=== PATIENT | female | born 1995 | race Hispanic/Latino ===

== ENCOUNTER → 2023-10-31 15:30 | Outpatient (CLI) | payer OTHER, SELFPAY ==
--- NOTE | 2023-10-31 15:32 | DI.US.S_ITS ---
PROCEDURE: US OB >= 14 WEEKS FETUS INDICATIONS: anatomy OUTSIDE/PRIOR DATING DATA: Last menstrual period (LMP): 06/12/2023. LMP-based estimated date of delivery (MAINOR): 03/18/2024. First dating scan (date and location): 10/31/2023. Estimated date of delivery (MAINOR) from first dating scan: 03/28/2024. TECHNIQUE: Real-time scanning was performed of the fetus, with image documentation and biometric measurements. COMPARISON: [facility], US, US PELVIC COMPLETE WITH TRANSVAGINAL, 04/05/2022, 13:26. FINDINGS: General: A single living intrauterine gestation is present. Presentation: Variable Placenta: Placental position is posterior , without previa. Amniotic fluid index: 14.0 cm, normal range is 5-24 cm. Single deepest vertical pocket is 5.7 cm. heart rate: 150 beats per minute. Maternal cervical canal: 4.8 cm long. Normal lower limit is 2.5 cm. biometrics: Biparietal diameter: 4.2 cm 18 weeks 5 days Head circumference: 15.3 cm 18 weeks 2 days Abdominal circumference: 13.4 cm 18 weeks 6 days Femur length: 2.9 cm 19 weeks 0 days Clinically estimated gestational age: 20 weeks 1 day Composite gestational age from present scan: 18 weeks 5 days Estimated weight and percentile: 261 g, 3rd percentile Anatomic survey: Neuro: Ventricles are non-dilated at less than 10 mm. Cisterna magna is normal at 3-11 mm. Cerebellum is normal in size and morphology. Nuchal skin fold: Normal at less than 6 mm between 14-21 weeks gestational age. Face: Nose and lips, facial profile are normal. Spine: No evidence for spina bifida. Heart: 4-chambered heart is present, with normal ventricular outflow tracts. Diaphragm: Diaphragm is intact. Stomach: Left-sided stomach is present. Kidneys: No hydronephrosis. Normal is less than 5 mm in 2nd trimester, less than 7 mm in 3rd trimester. Cord: 3-vessel cord has orthotopic insertion. Bladder: Normal in size. Extremities: All 4 extremities identified. IMPRESSION: Single live intrauterine with gestational age today of 18 weeks 5 days. Anatomy is within normal limits. weight is noted at the 3rd percentile. While weight is variable early in , continued interval follow-up is recommended to exclude presence of developing intrauterine growth restriction/microsomia. We strive to produce accurate, complete, and clear reports of imaging services. To assist us in improving patient care, this report was composed using standard report templates and voice recognition software. Therefore, it may contain abnormal punctuation, insertions and/or omissions. Occasional wrong-word or sound-alike substitutions may occur. Though we review the report and make efforts to correct it, we do recommend that the report be read carefully in proper context to recognize any text inaccuracies. Dictated by: Milagro Zarate M.D. on 11/01/2023 at 10:55 Approved by: Milagro Zarate M.D. on 11/01/2023 at 10:58
== END ==
PROVIDERS: Referring Provider Obstetrics & Gynecology; Visit Provider Obstetrics & Gynecology
DX: Z34.82 Encounter for supervision of other normal pregnancy, second trimester (principal); Z3A.18 18 weeks gestation of pregnancy
CPT/HCPCS: 76811; 87086

== ENCOUNTER → 2023-11-06 11:26 | Outpatient (CLI) | payer OTHER, SELFPAY ==
[2023-11-06 12:22] LABS: Add Manual Diff / Slide Review NO; Basophils Absolute Auto 0 /uL (0-100); Basophils Percent Auto 0.3 % (0-2); Eosinophils Absolute Auto 100 /uL (0-450); Eosinophils Percent Auto 1.3 % (2-4); Hematocrit 36.4 % (36-46); Hemoglobin 12.6 g/dL (12.0-16.0); Lymphocytes Absolute Auto 1400 /uL (1100-4500); Lymphocytes Percent Auto 18.4 % (25-40); Mean Corpuscular HGB Conc 34.5 % (30-36); Mean Corpuscular Hemoglobin 29.7 PG (26-34); Monocytes Absolute Auto 300 /uL (0-900); Monocytes Percent Auto 4.5 % (3-14); Neutrophils Absolute Auto 5600 /uL (1500-7000); Neutrophils Percent Auto 75.5 % (50-75); Platelet Count 249 X10^3/uL (150-400); Red Blood Cell Count 4.24 X10^6/uL (4.0-5.2); Red Cell Distribution Width 13.2 % (11.6-14.8); White Blood Cell Count 7.4 X10^3/uL (4.5-11.0)
[2023-11-06 17:13] LABS: Hepatitis B Surface Antigen NEGATIVE s/c (NEGATIVE); Rubella Antibody IgG 50.7 IU/mL (>15)
[2023-11-06 17:31] LABS: HIV 1 & 2 Ab/Ag 4th Gen Combo NEGATIVE (NEGATIVE); Hep C Virus Ab w/Reflex Quant NEGATIVE s/c (NEGATIVE)
[2023-11-07 06:52] LABS: RPR Screen Non Reactive (Non Reactive)
[2023-11-07 10:50] LABS: Varicella IgG Antibody 1868 index (Immune >165)
[2023-11-08 22:20] LABS: Calc Gestational Age Ultrasound (.); Estriol, Free 1.71 ng/mL (.); Inhibin A, Dimeric 259.24 pg/mL (.); Maternal Ethnicity Other (.); Maternal Weight 160 lbs (.); Number of Fetuses No (.); OSBR Risk 1 IN 10000 (.); Results Report (.); Test Results *Screen Positive* (.); hCG, MoM 1.24 (.); hCG, Serum 29071 mIU/mL (.)
== END ==
PROVIDERS: Referring Provider Obstetrics & Gynecology; Visit Provider Obstetrics & Gynecology
DX: Z34.80 Encounter for supervision of other normal pregnancy, unspecified trimester (principal)
CPT/HCPCS: 36415; 80055; 82105; 82677; 84702; 86336; 86787; 86803; 86850; 86900; 86901; 87389

== ENCOUNTER → 2023-12-11 10:58 | Outpatient (CLI) | payer OTHER, SELFPAY ==
[2023-12-11 13:35] LABS: Hematocrit 34.4 % (36-46)
[2023-12-11 13:55] LABS: Natera Collection Specimen Collected
[2023-12-11 14:58] LABS: GTT (PREG) 1 Hour PP 50gm Dose 90 mg/dL (76-139)
== END ==
PROVIDERS: Referring Provider Obstetrics & Gynecology; Visit Provider Obstetrics & Gynecology
DX: Z34.82 Encounter for supervision of other normal pregnancy, second trimester (principal); Z3A.26 26 weeks gestation of pregnancy
CPT/HCPCS: 36415; 82950; 85014; 85018

== ENCOUNTER → 2024-01-15 13:46 | Outpatient (CLI) | payer OTHER, SELFPAY ==
--- NOTE | 2024-01-15 13:47 | DI.US.S_ITS ---
PROCEDURE: US OB LIMITED INDICATIONS: interval growth OUTSIDE/PRIOR DATING DATA: Last menstrual period (LMP): 06/12/2023. LMP-based estimated date of delivery (MAINOR): 03/18/2024. First dating scan (date and location): Unknown. Estimated date of delivery (MAINOR) from first dating scan: Known. The calculations are made using the working MAINOR of 03/28/2024. TECHNIQUE: Real-time scanning was performed of the fetus, with image documentation and biometric measurements. Endovaginal scanning: No COMPARISON: None. FINDINGS: General: A single living intrauterine gestation is present. Presentation: Vertex. Placenta: Placental position is posterior , without previa. Placental cord insertion 3.3 cm from the placental edge Amniotic fluid index: 16.2 cm, normal range is 5-24 cm. Single deepest vertical pocket is 6.8 cm. heart rate: 147 beats per minute. Maternal cervical canal: 5.7 cm long. Normal lower limit is 2.5 cm. biometrics: Biparietal diameter: 7.1 cm, 28 week 3 day Head circumference: 27.3 cm, 29 week 6 day Abdominal circumference: 25.7 cm, 29 week 6 day Femur length: 5.6 cm, 29 week 4 day Clinically estimated gestational age: 31 week 0 day Composite gestational age from present scan: 29 week 3 day Estimated weight and percentile: 1433 g, 8 percentile Other: Cord Doppler 3.5, 3.0, 3.3. IMPRESSION: Single live intrauterine consistent with 29 week 3 day gestation by current ultrasound Estimated weight 8 percentile Approved by: Damon Polanco M.D. on 01/16/2024 at 17:56
== END ==
PROVIDERS: Referring Provider Obstetrics & Gynecology; Visit Provider Obstetrics & Gynecology
DX: O26.843 Uterine size-date discrepancy, third trimester (principal); Z3A.29 29 weeks gestation of pregnancy
CPT/HCPCS: 76815

== ENCOUNTER 2024-02-07 14:12 | Outpatient (CLI) | payer OTHER, SELFPAY ==
--- NOTE | 2024-02-07 15:25 | P.TNLD_ITS ---
Visit Information Visit Information Date of evaluation: 02/07/24 Primary OB Provider: Amalia Randolph On-call OB Provider: Amalia Randolph Reason for Evaluation: Yes non-stress test Comments/Additional reasons for admission: newly identified IUGR, MFM recommendations for once weekly NST [facility] Medical History (Updated 01/23/24 @ 09:26 by Amalia Randolph MD) affected by growth restriction Chicken pox Surgical History (Updated 10/23/23 @ 08:54 by Paulina Ramirez, RN) History of tooth extraction Family History (Updated 10/23/23 @ 09:34 by Paulina Ramirez, RN) Father Chang's palsy Mother Long COVID Family/Other Diabetes mellitus Family/Other Diabetes mellitus Family/Other Congenital heart anomaly Grandmother Pancreatic cancer Gastric ulcer Sister Preeclampsia Social History marital status: number of children: 1 household members: spouse and children lives independently: Yes caregiver/support person: Yes housing: house pets and animals: Yes (1 dog) education level: vocational (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, eyelashes, eyebrow tattoos, cosmetics)) current occupational exposures/hazards: Yes nafisa/episcopal: Religion special nafisa needs: No travel history: recent (Domestic only) seatbelt use: always helmet use: No water heater temp set < 120 deg: Yes working smoke detector in home: Yes fire extinguisher in home: No carbon monox detector in home: Yes firearms in home: No do you feel safe at home: Yes Smoking Status: Never smoker second hand exposure: No alcohol intake: former (very occasionally when not ) substance use type: does not use during the past year weight has: remained stable well-balanced diet: about half the time daily servings fruits/ve-4 caffeine: Yes (decaf only) Type(s) of exercise: none (wants to start gentle exercises again) additional social history: Immigrated from [place] age 10, 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 Evaluation Evaluation Baseline heart rate: 135 Variability: Moderate (11-25) monitor accelerations: Present Monitor Decelerations: Absent Category of Tracing: Reactive Status: Category l Diagnosis, Plan/Disposition Plan/Disposition OB Disposition: home
== END 2024-02-07 15:18 | disposition home or self-care (01) ==
LOC: LABOR 14:32 → OB 02-12 06:35
PROVIDERS: Referring Provider Obstetrics & Gynecology; Visit Provider Obstetrics & Gynecology
DX: O36.5930 Maternal care for other known or suspected poor fetal growth, third trimester, not applicable or unspecified (principal); Z3A.34 34 weeks gestation of pregnancy
CPT/HCPCS: 59025; G0378; G0379

== ENCOUNTER → 2024-02-26 08:12 | Outpatient (CLI) | payer OTHER, SELFPAY ==
[2024-02-27 15:51] LABS: Strep Grp B PCR NEG for Grp B Strep
== END ==
PROVIDERS: Referring Provider Student in an Organized Health Care Education/Training Program; Visit Provider Student in an Organized Health Care Education/Training Program
DX: Z34.80 Encounter for supervision of other normal pregnancy, unspecified trimester (principal); Z3A.36 36 weeks gestation of pregnancy
CPT/HCPCS: 87653

== ENCOUNTER 2024-03-26 08:47 | Outpatient (CLI) | payer OTHER, SELFPAY | END 2024-03-26 09:28 | disposition home or self-care (01) | LOC: LABOR 09:17 → OB 03-27 09:58 | PROVIDERS: Referring Provider Obstetrics & Gynecology; Visit Provider Obstetrics & Gynecology | DX: O48.0 Post-term pregnancy (principal); Z3A.40 40 weeks gestation of pregnancy | CPT/HCPCS: 59025; G0378; G0379 ==

== ENCOUNTER 2024-03-28 07:26 | Inpatient (IN) | payer OTHER, SELFPAY ==
[2024-03-28 12:47] VITALS: BP 111/66
--- NOTE | 2024-03-28 13:31 | PM.OBHP.IH.1 ---
OB HPI Date/Time Date of admission: 03/28/24 Date Patient Seen: 03/28/24 Time Patient Seen: 12:00 History of Present Condition Chief complaint: ob MAINOR Calculator Estimated Delivery Date Method Current WG Current Estimate 03/24/24 Ultrasound #1 40w 4d Other Estimates 03/18/24 LMP (Certain) 41w 3d : 3 Para: 1 Narrative: 28 yo at 40w4d here for contractions. No LOF, good movement. Some bloody show. She lives 30 minutes from hospital. Dating criteria OB: based on 1st trimester US only Ultrasounds: normal 1st trimester US and normal mid trimester US Obstetrical complications: none and growth restriction (resolved) Medical complications OB: none Preadmission Labs Last OB Lab Results: Blood Type A Positive 11/06/23 11:35 Antibody Screen Negative 11/06/23 11:35 Hct 34.4 % (36-46) L 12/11/23 11:42 Hgb 12.0 g/dL (12.0-16.0) 12/11/23 11:42 Hep Bs Antigen Negative s/c (NEGATIVE) 11/06/23 11:35 Hepatitis C Antibody Negative s/c (NEGATIVE) 11/06/23 11:35 Rubella Antibody 50.7 IU/mL (>15) 11/06/23 11:35 VZV IgG Antibody 1868 index (Immune >165) 11/06/23 11:35 Glucose 1 Hr 50 gm 90 mg/dL (76-139) 12/11/23 11:42 Group B Strep (PCR) Neg for grp b strep 02/26/24 08:12 Genetic Screens: Quad screen: Abnormal and Cell-free DNA: Normal (XX) Prior (ies) Past Pregnancies Del. Date GA/Weeks Labor Lgth Wt Sex Route Outcome Anesthesia Place Delv Breastfeed Preg Comp Name 03/26/12 39 12 6 lb 13 oz Female vaginal live - full term epidural Winston 1 year none Polina 04/05/22 4-6 spontaneous Delivery Date: 04/05/22 Last Updated by: Paulina Ramirez RN passed spontaneously, no complications Evaluation Evaluation Baseline heart rate: 145 Variability: Average (6-10) monitor accelerations: Present Monitor Decelerations: Absent Contraction Frequency (minutes): 5 Uterine Contraction Intensity: Moderate Category of Tracing: Reactive Status: Category l Dilation (cm): 4 Effacement (%): 90 Dilation: 3-4 cm Effacement: >/=80% station: -1 Position of cervix: posterior Consistency: soft Cheek score: 9 PFSH Medical History (Updated 02/19/24 @ 15:47 by Jessenia Tolbert DO) Chicken pox Surgical History (Updated 10/23/23 @ 08:54 by Paulina Ramirez RN) History of tooth extraction Family History (Updated 10/23/23 @ 09:34 by Paulina Ramirez RN) Father Chang's palsy Mother Long COVID Family/Other Diabetes mellitus Family/Other Diabetes mellitus Family/Other Congenital heart anomaly Grandmother Pancreatic cancer Gastric ulcer Sister Preeclampsia Social History marital status: number of children: 1 household members: spouse and children lives independently: Yes caregiver/support person: Yes housing: house pets and animals: Yes (1 dog) education level: 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, eyelashes, eyebrow tattoos, cosmetics)) current occupational exposures/hazards: Yes nafisa/taoist: Gnosticism special nafisa needs: No travel history: recent (Domestic only) seatbelt use: always helmet use: No water heater temp set < 120 deg: Yes working smoke detector in home: Yes fire extinguisher in home: No carbon monox detector in home: Yes firearms in home: No do you feel safe at home: Yes Smoking Status: Never smoker second hand exposure: No alcohol intake: former (very occasionally when not ) substance use type: does not use during the past year weight has: remained stable well-balanced diet: about half the time daily servings fruits/ve-4 caffeine: Yes (decaf only) Type(s) of exercise: none (wants to start gentle exercises again) additional social history: Immigrated from [place] age 10, 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 Meds Home Medications and Allergies Home Medications Medication Instructions Recorded Confirmed Type vitamin-ferrous sulfate tab PO DAILY 10/23/23 03/26/24 History 27 mg iron-folic acid 0.8 mg tablet Allergies Allergy/AdvReac Type Severity Reaction Status Date / Time No Known Drug Allergies Allergy Verified 03/28/24 12:56 Assessment and Plan Assessment and Plan Assessment and Plan narrative: 28 yo at 40w4d for labor. SVE 2-->4cm. Will admit for labor with augmentation as patient feels comfortable. complicated by abnormal quad screen, normal cell free DNA. Growth restriction that resolved. GBS negative. -ideally would like to go unmedicated -anticipate Time-Based Coding :: 30 minutes spent with patient and on the chart (including review of chart, obtaining history, exam, reviewing outside data, placing orders, documenting exam and treatment plan, and counseling patient) on 03/28.
[2024-03-28 14:01] LABS: Add Manual Diff / Slide Review NO; Basophils Absolute Auto 0 /uL (0-100); Basophils Percent Auto 0.4 % (0-2); Eosinophils Absolute Auto 0 /uL (0-450); Eosinophils Percent Auto 0.5 % (2-4); Hematocrit 35.4 % (36-46); Hemoglobin 12.2 g/dL (12.0-16.0); Lymphocytes Absolute Auto 1200 /uL (1100-4500); Mean Corpuscular HGB Conc 34.6 % (30-36); Mean Corpuscular Hemoglobin 29.9 PG (26-34); Mean Corpuscular Volume 86.4 fL (80-100); Monocytes Absolute Auto 400 /uL (0-900); Monocytes Percent Auto 4.7 % (3-14); Neutrophils Absolute Auto 6600 /uL (1500-7000); Neutrophils Percent Auto 79.4 % (50-75); Platelet Count 208 X10^3/uL (150-400); Red Blood Cell Count 4.09 X10^6/uL (4.0-5.2); Red Cell Distribution Width 13.9 % (11.6-14.8); White Blood Cell Count 8.3 X10^3/uL (4.5-11.0)
--- NOTE | 2024-03-28 18:11 | PM.OBPNLAB ---
Date/Time Date Patient Seen: 03/28/24 Pain Control Pain control: tolerating well Pelvic Exam Dilation (cm): 8 Effacement (%): 90 station: -1 Amniotic membrane status: Ruptured Contractions Contractions on admission: regular Contraction frequency (min): 3 Contraction duration (min): 1 Contraction pattern: Regular Contraction intensity: Moderate Status status: Category l Heart Rate Baseline: 135 Monitor Accelerations: Present Monitor Decelerations: Absent Monitor Variability: Moderate Assessment and Plan Assessment: active labor Plan: continuous present management
--- NOTE | 2024-03-28 20:39 | PM.OBPRVD ---
Labor & Delivery Delivery date: 03/28/24 Intrapartal Events: None Cervical ripening method: none Induction method: none Delivery monitor: external FHT Route of delivery: L&D Laceration Description: Perineal - 1st Degree Delivery repair: vicryl Estimated blood loss (mL): 350 Anesthesia Type: None Narrative: With ongoing pushing efforts, delivered in OA positioning. Strip was category 1 prior to delivery. Pitocin started immediately following delivery. Cord was clamped at 2 minutes of life. Placenta delivered with manual traction. Bleeding was moderate. Uterine fundus found to be firm on external exam. Small first degree perineal bleeding so repaired with 3-0 vicryl with figure of 8 suture. Plan for aftercare: Routine care
[2024-03-28] MEDS: IBUPROFEN 600 MG TABLET PO (21:06)
[2024-03-28] MEDS: DERMOPLAST SPRAY 20% 60 ML 1 SPRAY TOP (21:36)
[2024-03-28] MEDS: WITCH HAZEL/GLYCERIN PADS 1 EACH TOP (21:36)
[2024-03-28] MEDS: LANOLIN OINT 7 GM 1 APPLIC TOP (21:36)
[2024-03-29] MEDS: IBUPROFEN 600 MG TABLET PO ×2 (03:43→10:06)
[2024-03-29] MEDS: ACETAMINOPHEN 325 MG TABLET 650 MG PO (10:05)
[2024-03-29] MEDS: PRENATAL VIT,CALC/IRON/FOLIC 1 TABLET 1 TAB PO (10:05)
[2024-03-29] MEDS: FERROUS SULFATE 325 MG TABLET PO (10:05)
--- NOTE | 2024-03-29 10:10 | P.PNOB_ITS ---
Objective Labs 03/28/24 13:46 Labs: Laboratory Results - last 24 hr 03/28/24 13:46 WBC 8.3 RBC 4.09 Hgb 12.2 Hct 35.4 L MCV 86.4 MCH 29.9 MCHC 34.6 RDW 13.9 Plt Count 208 Neut % (Auto) 79.4 H Lymph % (Auto) 15.0 L Roberts % (Auto) 4.7 Eos % (Auto) 0.5 L Baso % (Auto) 0.4 Neut # (Auto) 6600 Lymph # (Auto) 1200 Roberts # (Auto) 400 Eos # (Auto) 0 Baso # (Auto) 0 Blood Type A Positive Antibody Screen Negative Assessment & Plan Time-Based Coding :: [TOTAL MINUTES] spent with patient and on the chart (including review of chart, obtaining history, exam, reviewing outside data, placing orders, documenting exam and treatment plan, and counseling patient) on [DATE].
--- NOTE | 2024-03-29 13:31 | PM.OBDS.1 ---
Discharge Providers Provider Date of admission: 03/28/24 07:26 Discharge Date: 03/29/24 Primary care physician: Doctor Juan MD Consults: 03/28/24 12:57 Consult to Anesthesiology Urgent Comment: Consulting Provider: Anesthesiologist Reason for consultation: Epidural 03/29/24 20:42 Consult to Hotel Front Office Manager Routine Comment: Discharge provider: Amalia Randolph MD Summary Hospital Course Date Patient Seen: 03/29/24 Time Patient Seen: 08:00 Diagnoses: PPD1 s/p of LBFI Hospital Course: 28yo presented to L&D at 40w4d with c/o increasing contractions. course overall uncomplicated, noted abnormal quad screening with normal low-risk cfDNA, concern for IUGR that corrected with adjustment of due date to reflect true dating US in early first trimester. PNL as per admission documentation, GBS negative. On admission noted reassuring status, Cat 1 tracing, maternal VSS/afebrile. Patient in late latent labor on arrival, SVE 4cm with subsequent progression to full dilation without indication for augmentation. Unmedicated second stage, uncomplicated with successful delivery of vigorous female , small first degree perineal laceration repaired in standard fashion. Patient had an uncomplicated course, lochia wnl and exclusively without difficulty. Pt requested expedited discharge on PPD1 pending clearance per peds, declines contraception at time of discharge. Peripartum Data Delivery Method: Natural Vaginal Laceration Description: Perineal - 1st Degree complications: none 1: Gender: Female Disposition of : home Status at Discharge Cognitive/behavioral status at discharge: oriented Functional status at discharge: independent ambulation Overall status at discharge: patient is back to baseline Time Spent with Patient Time attestation: Total time spent providing and/or coordinating discharge services: Objective Labs 03/28/24 13:46 Labs: Laboratory Results - last 24 hr 03/28/24 13:46 WBC 8.3 RBC 4.09 Hgb 12.2 Hct 35.4 L MCV 86.4 MCH 29.9 MCHC 34.6 RDW 13.9 Plt Count 208 Neut % (Auto) 79.4 H Lymph % (Auto) 15.0 L O'Brien % (Auto) 4.7 Eos % (Auto) 0.5 L Baso % (Auto) 0.4 Neut # (Auto) 6600 Lymph # (Auto) 1200 O'Brien # (Auto) 400 Eos # (Auto) 0 Baso # (Auto) 0 Blood Type A Positive Antibody Screen Negative Exam Vital Signs (past 8 hours): maternal VSS reviewed in OBIX, wnl/afebrile Const General: cooperative and healthy appearing Nutritional Appearance: average body habitus Orientation: alert, awake and oriented x3 Limitations: mental status not altered Resp Effort & Inspection: normal respiratory effort and able to speak in complete sentences Cardio Pulses: normal peripheral pulses GI Inspection: normal to inspection Other: fundus firm << umb, non-tender Other: deferred per shared decision making with patient Skin General: no rashes or lesions noted Neuro General: patient alert, patient awake and patient oriented x3 Extrem General: normal to inspection Psych Mental Status: mental status grossly normal Judgment: judgment good Discharge Plan Discharge Plan Patient Disposition: Home Provider Discharge Comment: Nothing in the vagina for 4 weeks. No tampons, intercourse, swimming in fresh water/pools/hot tubs. Tub baths are ok if the tub is cleaned well first. Discharge orders & Medications Prescriptions: New acetaminophen 325 mg Tablet 650 mg PO Q6HR PRN (Reason: Pain, Mild (1-3)) Qty: 30 0RF Dermoplast (with menthol) 20-0.5 % Aerosol 1 spray topical Q1HR Qty: 56 0RF ferrous sulfate 325 mg (65 mg iron) Tablet 325 mg PO DAILY Qty: 30 0RF ibuprofen 600 mg Tablet 600 mg PO Q6HR PRN (Reason: Pain, Mild (1-3)) Qty: 30 0RF Purelan Cream 1 applic topical PRN PRN (Reason: Tenderness) Qty: 7 3RF Continued vit-ferrous sulfat-FA 27 mg iron- 0.8 mg tablet PO DAILY Follow up/Referrals: Doctor Martinez MD [Primary Care Provider] - Shanita Ledezma MD [Physician] - 04/26/24 9:00 am (4 week post appt) Diet/Activity/Treatments Diet: Regular Skin/Wound/Dressing Care Report to your healthcare provider any signs of infection, such as:: chills, fever, night sweats, increased pain and unusual drainage Visit Report/Discharge Packet Stand Alone Forms: Patient Portal/API, Stroke Signs & Symptoms Discharge Data Primary Care Provider: Doctor Juan
== END 2024-03-29 17:08 | disposition home or self-care (01) | DRG 807 ==
PROVIDERS: Admitting Provider Obstetrics & Gynecology; Referring Provider Obstetrics & Gynecology; Visit Provider Obstetrics & Gynecology
DX: O70.0 First degree perineal laceration during delivery (principal); Z37.0 Single live birth; Z3A.40 40 weeks gestation of pregnancy
CPT/HCPCS: 36415; 59050; 59400; 59409; 85025; 86850; 86900; 86901; G0379